=== PATIENT | female | born 1940 | race Caucasian/White ===

== ENCOUNTER 2016-05-16 21:01 | Emergency (ER) | payer OTHER, BC ==
[~2016-05-16] VITALS: Ht 165.1 cm; Wt 61.4 kg
[~2016-05-16 21:01] MED LIST: PRAVASTATIN SOD40 MG PO; PROBIOTIC1 EAC1 PO; ZOFRAN4 MG PO; citracal
[2016-05-16 21:04] VITALS: BP 148/92
[2016-05-16] MEDS ORDERED: TRAMADOL HCL50 MG PO (22:08)
[2016-05-16] MEDS ORDERED: NAPROSYN500 MG PO (22:08)
== END 2016-05-16 22:44 | disposition home or self-care (01) ==
LOC: EME 21:01
DX: S93.402A Sprain of unspecified ligament of left ankle, initial encounter (principal); W01.0XXA Fall on same level from slipping, tripping and stumbling without subsequent striking against object, initial encounter; E78.5 Hyperlipidemia, unspecified; Z87.891 Personal history of nicotine dependence
CPT/HCPCS: 73610; 99281; 99284

== ENCOUNTER 2016-07-18 13:42 | Emergency (ER) | payer OTHER, BC ==
[~2016-07-18] VITALS: Ht 167.6 cm; Wt 63.5 kg
[~2016-07-18 13:42] MED LIST changes: +NAPROSYN500 MG PO; +TRAMADOL HCL50 MG PO
[2016-07-18 15:15] LABS: BASOPHIL COUNT 0.1 K/uL (0-0.1); EOSINOPHIL (%) 1.9 % (0-5); EOSINOPHIL COUNT 0.1 K/uL (0-0.3); HEMATOCRIT 36.3 % (36.0-46.0); IMMATURE GRANULOCYTE (%) 0.5 % (0.0-0.7); INSTRUMENT ABS NEUTROPHIL CT 5.9 K/uL; LYMPHOCYTE COUNT 0.8 K/uL (1.0-2.8); MCH 29.6 PG (29.0-34.0); MCHC 33.1 G/DL (30.0-36.0); MCV 89.6 FL (83-99); MEAN PLAT.VOLUME 11.5 uM^3 (9.5-12.4); MONOCYTE (%) 6.9 % (3-12); MONOCYTE COUNT 0.5 K/uL (0-0.8); NEUTROPHIL COUNT 5.9 K/uL (1.8-6.4); PLATELET COUNT 174 K/uL (156-360); RBC DIS.WIDTH-SD 42.5 % (39-53); RED BLOOD COUNT 4.05 M/uL (3.80-5.20); WHITE BLOOD COUNT 7.4 K/uL (4.1-10.2)
[2016-07-18 15:28] LABS: CHLORIDE 102 mEq/L (99-109); POTASSIUM 4.4 mEq/L (3.7-5.4); SODIUM 138 mEq/L (136-147)
[2016-07-18 15:30] LABS: GLUCOSE 105 mg/dL (70-99)
[2016-07-18 15:31] LABS: ANION GAP 10 MEQ/L (2-14)
[2016-07-18 15:32] LABS: TOTAL BILIRUBIN 0.3 mg/dL (0.0-1.0)
[2016-07-18 15:33] LABS: ALKALINE PHOSPHATASE 42 IU/L (3-129)
[2016-07-18 15:34] LABS: GFR ESTIMATE (CALCULATED) 57 mL/min/
[2016-07-18 15:35] LABS: UREA NITROGEN (BUN) 15 mg/dL (9-23)
[2016-07-18 15:37] LABS: LIPASE 43 U/L (1.0-51.0)
[2016-07-18 16:39] LABS: ADD MIUA? YES; BILIRUBIN NEGATIVE; BLOOD SMALL; COLOR YELLOW ((YELLOW)); GLUCOSE (STRIP) NEGATIVE; KETONES NEGATIVE; LEUKOCYTES TRACE; NITRITE NEGATIVE; PROTEIN (STRIP) NEGATIVE; SPECIFIC GRAVITY 1.009 (1.000-1.030); UROBILINOGEN 0.2 MG/DL (0.2-1.0)
[2016-07-18 17:01] LABS: BACTERIA RARE /HPF; EPITHELIAL CELLS RARE /HPF; MUCUS NONE SEEN /LPF; RED BLOOD CELLS RARE /HPF (0-5); UCUL ADDED? NO; WHITE BLOOD CELLS 0-5 /HPF (0-5)
[2016-07-18 17:02] LABS: CASTS NONE SEEN /LPF; CRYSTALS NONE SEEN
[2016-07-18 17:17] VITALS: BP 130/66
== END 2016-07-18 17:19 | disposition home or self-care (01) ==
LOC: EME 13:42
PROVIDERS: Emergency Medicine
DX: R10.9 Unspecified abdominal pain (principal); R55 Syncope and collapse; S00.93XA Contusion of unspecified part of head, initial encounter; W18.12XA Fall from or off toilet with subsequent striking against object, initial encounter; Y92.002 Bathroom of unspecified non-institutional (private) residence as the place of occurrence of the external cause; R19.7 Diarrhea, unspecified; E78.5 Hyperlipidemia, unspecified; Z87.891 Personal history of nicotine dependence
CPT/HCPCS: 70450; 74177; 80053; 81003; 83690; 85025; 93005; 99281; 99285; J2405; J7030